=== PATIENT | male | born 1985 ===

== ENCOUNTER 2021-04-23 00:05 | Emergency (ER) | payer OTHER ==
[~2021-04-23] VITALS: Ht 177.8 cm; Wt 70.3 kg
== END 2021-04-23 00:25 ==
LOC: ER 00:05
DX: S50.311A Abrasion of right elbow, initial encounter (principal); S30.811A Abrasion of abdominal wall, initial encounter; S20.311A Abrasion of right front wall of thorax, initial encounter; S90.811A Abrasion, right foot, initial encounter; S80.811A Abrasion, right lower leg, initial encounter; S80.211A Abrasion, right knee, initial encounter; F10.129 Alcohol abuse with intoxication, unspecified; X58.XXXA Exposure to other specified factors, initial encounter
CPT/HCPCS: 90471; 90714; 99282-25